=== PATIENT | female | born 1995 | race Caucasian/White ===

== ENCOUNTER 2021-11-01 16:51 | Outpatient (REF) | payer BC, SELFPAY ==
--- NOTE | ~2021-11-01 | XR_ITS ---
EXAMINATION: XR CHEST CLINICAL INFORMATION: Upper respiratory infection COMPARISON: None TECHNIQUE: 2 views of the chest were obtained. FINDINGS: No significant abnormality is noted involving the heart, lungs, mediastinum, bony thorax or soft tissues. XR/XR chest 2V IMPRESSION: Normal chest x-ray
== END 2021-11-01 16:52 | disposition home or self-care (01) ==
LOC: HO.HMGCX 16:51
PROVIDERS: Visit Provider Physician Assistant Medical
DX: J06.9 Acute upper respiratory infection, unspecified (principal)
CPT/HCPCS: 71046